=== PATIENT | male | born 1960 | race Asian ===

== ENCOUNTER 2020-12-21 19:17 | Emergency (ER) | payer OTHER ==
[2020-12-21 19:24] VITALS: BP 164/90; PULSE 60; TEMP 98; BMI 25.2
[2020-12-21] MEDS ORDERED: KETOROLAC TROMETHAMINE 30 MG/1 ML VIAL IM ONE (20:11)
[2020-12-21] MEDS ORDERED: KETOROLAC TROMETHAMINE 30 MG/1 ML VIAL ONE (20:23)
== END 2020-12-21 22:07 | disposition home or self-care (01) ==
LOC: JERFT 19:17 → JER 19:17 → JERFT 22:07
PROC: 3E0233Z Introduction of Anti-inflammatory into Muscle, Percutaneous Approach (ICD-10-PCS; principal; 2020-12-21)
DX: M25.562 Pain in left knee (principal); W11.XXXA Fall on and from ladder, initial encounter
CPT/HCPCS: 72100-TC-FY; 72170-TC-FY; 73502-TC-LT-FY; 73562-TC-LT-FY; 99285-25